=== PATIENT | male | born 1955 | race Caucasian/White ===

== ENCOUNTER 2020-11-11 22:41 | Emergency (ER) | payer BC ==
[~2020-11-11] VITALS: Ht 170.2 cm; Wt 66.2 kg
[2020-11-11 22:53] VITALS: Ht 170.2 cm; Wt 66.2 kg
[2020-11-12 00:35] LABS: BASOPHIL % 0.7 % (0.2-1.5); PLATELET COUNT 286 x10^3mcL (152-348); RED CELL DISTRIBUTION WIDTH 13.7 % (12.1-16.2)
[2020-11-12 00:46] LABS: CALCIUM 8.9 mg/dL (8.5-10.1); CARBON DIOXIDE 30.5 mmol/L (21-32); CHLORIDE SERUM 105 mmol/L (98-107); CREATININE SERUM 1.2 mg/dL (0.7-1.3); GFR1 > 60 mL/min; GLUCOSE SERUM 131 mg/dL (74-106); POTASSIUM SERUM 3.8 mmol/L (3.5-5.1); SODIUM SERUM 141 mmol/L (136-145)
[2020-11-12 00:50] LABS: ALBUMIN 3.7 g/dL (3.4-5.0); ALKALINE PHOSPHATASE 99 U/L (46-116); ALT/SGPT 32 U/L (16-63); AST/SGOT 22 U/L (15-37); BILIRUBIN TOTAL 0.5 mg/dL (0.20-1.00); TOTAL PROTEIN, SERUM 6.6 g/dL (6.4-8.2)
[2020-11-12 02:00] VITALS: BP 115/79
== END 2020-11-12 02:00 | disposition left against medical advice (07) ==
LOC: ED 22:41
PROVIDERS: Emergency Medicine
DX: R55 Syncope and collapse (principal); R40.4 Transient alteration of awareness
CPT/HCPCS: 84439; 85378